=== PATIENT | male | born 1975 | race African-American/Black ===

== ENCOUNTER → 2016-08-14 | Outpatient (REF) | payer OTHER | LOC: M LABNEURO 12:37 | PROVIDERS: ATTEND Psychiatry & Neurology Neurology | DX: H49.00 Third [oculomotor] nerve palsy, unspecified eye (principal); H49.10 Fourth [trochlear] nerve palsy, unspecified eye ==

== ENCOUNTER → 2016-09-03 | Outpatient (CLI) | payer OTHER ==
--- NOTE | 2016-09-04 03:35 | REP ---
Clinical: Thymoma. Technique: Axial noncontrast images from the thoracic inlet to the upper abdomen with coronal and sagittal re-formations. Findings: The mediastinum is unremarkable for noncontrast evaluation and there is no significant residual thymic tissue or anterior mediastinal mass/abnormality. There is no evidence for axillary, hilar, or mediastinal adenopathy. Thyroid gland is unremarkable. The heart/pericardium, thoracic aorta and pulmonary vasculature appear normal. The bilateral lung rodriguez are symmetric and well-aerated. No acute consolidation, nodule or mass lesion is appreciated. No pleural effusion/reaction or pneumothorax. Tracheobronchial tree is patent. Surrounding musculoskeletal structures are normal. Impression: Normal noncontrast chest CT. No evidence for thymoma or mediastinal abnormality. No acute pulmonary parenchymal or pleural process. Signed by Art Bearden MD 09/04/2016 03:26 A
== END ==
LOC: M RAD 15:41
PROVIDERS: ATTEND Psychiatry & Neurology Neurology
DX: D15.0 Benign neoplasm of thymus (principal)

== ENCOUNTER 2016-10-03 21:42 | Emergency (ER) | payer OTHER ==
[~2016-10-03] VITALS: Ht 188 cm; Wt 93.0 kg
[2016-10-03] MEDS ORDERED: PYRIDOSTIGMINE 60 MG TAB PO SCH (22:15)
--- NOTE | 2016-10-03 22:26 | EDDOCDS ---
Physician Documentation [facility] Name: Sky Win Age: 41 yrs Sex: Male : 1975 Arrival Date: 10/03/2016 Time: 21:42 Bed 17 Private MD: Moses Rodríguez Disposition: 10/03/16 22:01 Discharged to Home/Self Care. Impression: Encounter for issue of repeat prescription. - Condition is Stable. - Prescriptions for Mestinon 60 mg Oral tablet - take 1 tablet by ORAL route 2 times per day; 10 tablet. - Medication Reconciliation, Local Pharmacy Hours form. - Follow up: Moses Rodríguez; When: Call to arrange an appointment; Reason: Recheck today's complaints, Continuance of care. - Problem is chronic. - Symptoms are unchanged. Historical: - Allergies: no known allergies; - Home Meds: 1. Mestinon 60 mg Oral tab BID 2. prednisone 20 mg Oral tab once daily 3. CellCept 500 mg Oral tab 3 tabs 2 times per day - PMHx: myasthenia gravis; - PSHx: Tonsillectomy; - Social history: Smoking status: Patient states was never smoker of tobacco. No barriers to communication noted, The patient speaks fluent Liberian. - Family history: Not pertinent. - : The pt / caregiver states he / she is not on anticoagulants. Home medication list is obtained from the patient. - Exposure Risk Screening:: None identified. Vital Signs: 10/03 21:42 BP 133 / 69; Pulse 85; Resp 16; Temp 96.3(T); Pulse Ox 99% on R/A; Weight 92.99 kg / lr2 205.01 lbs (R); Height 6 ft. 2 in. (187.96 cm) (R); 21:42 Body Mass Index 26.32 (92.99 kg, 187.96 cm) lr2 MDM: 22:08 Mestinon 60 mg PO once; dispense home with pt. ordered. ttb Administered Medications: 22:25 Drug: Mestinon 60 mg Route: PO; ttb Signatures: Asiya Coates RN RN oRnak Cotto DO DO cs11 Carolina Crane RN RN ttb Mary MedinaRN RN tm5 MTDD
--- NOTE | 2016-10-03 22:26 | EDDOCDS ---
Nurse's Notes [facility] Name: Sky Win Age: 41 yrs Sex: Male : 1975 Arrival Date: 10/03/2016 Time: 21:42 Bed 17 Private MD: Moses Rodríguez Diagnosis: Encounter for issue of repeat prescription Presentation: 10/03 21:48 Presenting complaint: Patient states: Daughter flushed meds down toilet--needs refill mcp on mestinon 60mg BID. Adult Sepsis Screening: The patient does not have new or worsening altered mentation. Patient's respiratory rate is less than 22. Systolic blood pressure is greater than 100. Patient has a qSOFA score of 0- Negative Sepsis Screen. Suicide/Homicide risk assessment- the patient denies having any suicidal and/or homicidal ideations and does not present with any other emotional, behavioral or mental health complaints. Status: The patient is an active duty financial services internship. Transition of care: patient was not received from another setting of care. 21:48 Acuity: JOYCELYN Level 5 [facility] 21:48 Method Of Arrival: Walkin/Carried/Asstd [facility] Triage Assessment: 21:52 General: Appears in no apparent distress, Behavior is cooperative. Pain: Denies pain. [facility] HIV screening NA for this visit Offered previously. Neurological: No deficits noted. Respiratory: Airway is patent Respiratory effort is even, unlabored. Derm: Skin is pink, warm & dry. Historical: - Allergies: no known allergies; - Home Meds: 1. Mestinon 60 mg Oral tab BID 2. prednisone 20 mg Oral tab once daily 3. CellCept 500 mg Oral tab 3 tabs 2 times per day - PMHx: myasthenia gravis; - PSHx: Tonsillectomy; - Social history: Smoking status: Patient states was never smoker of tobacco. No barriers to communication noted, The patient speaks fluent Montenegrin. - Family history: Not pertinent. - : The pt / caregiver states he / she is not on anticoagulants. Home medication list is obtained from the patient. - Exposure Risk Screening:: None identified. Screenin:58 Screening information is obtained from the patient. Fall risk: No risks identified. tm5 Assistance ADL's: requires no assistance with activities of daily living. Abuse/DV Screen: The patient / caregiver reports he/she is: not in a situation that causes fear, pain or injury. Nutritional screening: No deficits noted. Advance Directives: There is no active DNR order. home support is adequate. Assessment: 21:59 General: Appears in no apparent distress, Behavior is appropriate for age, cooperative. tm5 Pain: Denies pain. Respiratory: Airway is patent Respiratory effort is even, unlabored, Respiratory pattern is regular, symmetrical, Breath sounds are clear bilaterally. Derm: Skin is pink, warm & dry. 22:10 General: pt given DC instructions and is ready for DC. OK with MD to dispense dose for ttb pharmacy clerk. . 22:10 Neurological: Level of Consciousness is awake, alert, Reports weakness to right hand ttb trying to write.. 22:22 General: pt discharged.. ttb Vital Signs: 21:42 BP 133 / 69; Pulse 85; Resp 16; Temp 96.3(T); Pulse Ox 99% on R/A; Weight 92.99 kg (R); lr2 Height 6 ft. 2 in. (187.96 cm) (R); 21:42 Body Mass Index 26.32 (92.99 kg, 187.96 cm) lr2 Vitals: 21:42 Log In Time: October 03, 2016 at 21:42. lr2 ED Course: 21:44 Patient visited by Trini Magana. lr2 21:44 Patient moved to Waiting lr2 21:45 Moses Rodríguez is Private Physician. lr2 21:45 Patient moved to Pre RCE lr2 21:50 Triage Initiated mcp 21:51 Patient moved to [facility] 21:53 Patient visited by Asiya Coates RN. mcp 21:53 Ronak Nixon DO is Attending Physician. cs11 21:54 Patient visited by Ronak Nixon DO. cs11 21:58 Patient visited by Mary Medina RN. tm5 21:59 Awaiting ED physician evaluation. tm5 21:59 The patient / caregiver is instructed regarding the plan of care and ED course. tm5 21:59 No IV's were initiated during this patient's visit. No procedures done that require tm5 assistance. 22:00 Moses Rodríguez is Referral Physician. cs11 22:22 Patient has correct armband on for positive identification. ttb Administered Medications: 22:25 Drug: Mestinon 60 mg Route: PO; ttb Order Results: There are currently no results for this order. Outcome: 22:01 Discharge ordered by Provider. cs11 22:22 Discharge Assessment: Patient awake, alert and oriented x 3. No cognitive and/or ttb functional deficits noted. Patient verbalized understanding of disposition instructions. Patient awake and alert. patient administered narcotics - no. The following High Risk Discharge criteria are identified: None. Discharged to home ambulatory. Condition: good Condition: stable Condition: improved. Discharge instructions given to patient, Instructed on discharge instructions, follow up and referral plans. medication usage, Demonstrated understanding of instructions, medications, Pt was receptive of discharge instructions/ teaching. Prescriptions given X 1, 1 dose dispensed as well. No special radiology studies were completed. Property :Personal belongings accompany Pt. 22:25 Patient left the ED. ttb Signatures: Asiya Coates RN RN Jennifer Kidd Craig, DO DO cs11 Carolina Crane RN RN ttb Mary Medina RN RN donato5 Trini Magana2 AMADA
--- NOTE | 2016-10-05 23:27 | EDDOCDS ---
Physician Documentation [facility] Name: Sky Win Age: 41 yrs Sex: Male : 1975 Arrival Date: 10/03/2016 Time: 21:42 Bed 17 Private MD: Moses Rodríguez Disposition: 10/03/16 22:01 Discharged to Home/Self Care. Impression: Encounter for issue of repeat prescription. - Condition is Stable. - Prescriptions for Mestinon 60 mg Oral tablet - take 1 tablet by ORAL route 2 times per day; 10 tablet. - Medication Reconciliation, Local Pharmacy Hours form. - Follow up: Moses Rodríguez; When: Call to arrange an appointment; Reason: Recheck today's complaints, Continuance of care. - Problem is chronic. - Symptoms are unchanged. Historical: - Allergies: no known allergies; - Home Meds: 1. Mestinon 60 mg Oral tab BID 2. prednisone 20 mg Oral tab once daily 3. CellCept 500 mg Oral tab 3 tabs 2 times per day - PMHx: myasthenia gravis; - PSHx: Tonsillectomy; - Social history: Smoking status: Patient states was never smoker of tobacco. No barriers to communication noted, The patient speaks fluent Montenegrin. - Family history: Not pertinent. - : The pt / caregiver states he / she is not on anticoagulants. Home medication list is obtained from the patient. - Exposure Risk Screening:: None identified. Vital Signs: 10/03 21:42 BP 133 / 69; Pulse 85; Resp 16; Temp 96.3(T); Pulse Ox 99% on R/A; Weight 92.99 kg / lr2 205.01 lbs (R); Height 6 ft. 2 in. (187.96 cm) (R); 21:42 Body Mass Index 26.32 (92.99 kg, 187.96 cm) lr2 MDM: 22:08 Mestinon 60 mg PO once; dispense home with pt. ordered. ttb 10/04 09:34 T-Sheet-- Draft Copy was scanned into [employer] and attached to record. se Administered Medications: 10/03 22:25 Drug: Mestinon 60 mg Route: PO; ttb Signatures: Asiya Coates RN RN mcp Schiff, Craig, DO DO cs11 Carolina Crane RN RN Jennifer Abrams Tonya, RN RN tm5 The chart was reviewed and I authenticate all verbal orders and agree with the evaluation and treatment provided.Attachments: 10/04 09:34 T-Sheet-- Draft Copy wood Chart Complete MTDD
--- NOTE | 2016-10-05 23:27 | EDDOCDS ---
Physician Documentation [facility] Name: Sky Win Age: 41 yrs Sex: Male : 1975 Arrival Date: 10/03/2016 Time: 21:42 Bed 17 Private MD: Moses Rodríguez Disposition: 10/03/16 22:01 Discharged to Home/Self Care. Impression: Encounter for issue of repeat prescription. - Condition is Stable. - Prescriptions for Mestinon 60 mg Oral tablet - take 1 tablet by ORAL route 2 times per day; 10 tablet. - Medication Reconciliation, Local Pharmacy Hours form. - Follow up: Moses Rodríguez; When: Call to arrange an appointment; Reason: Recheck today's complaints, Continuance of care. - Problem is chronic. - Symptoms are unchanged. Historical: - Allergies: no known allergies; - Home Meds: 1. Mestinon 60 mg Oral tab BID 2. prednisone 20 mg Oral tab once daily 3. CellCept 500 mg Oral tab 3 tabs 2 times per day - PMHx: myasthenia gravis; - PSHx: Tonsillectomy; - Social history: Smoking status: Patient states was never smoker of tobacco. No barriers to communication noted, The patient speaks fluent Sammarinese. - Family history: Not pertinent. - : The pt / caregiver states he / she is not on anticoagulants. Home medication list is obtained from the patient. - Exposure Risk Screening:: None identified. Vital Signs: 10/03 21:42 BP 133 / 69; Pulse 85; Resp 16; Temp 96.3(T); Pulse Ox 99% on R/A; Weight 92.99 kg / lr2 205.01 lbs (R); Height 6 ft. 2 in. (187.96 cm) (R); 21:42 Body Mass Index 26.32 (92.99 kg, 187.96 cm) lr2 MDM: 22:08 Mestinon 60 mg PO once; dispense home with pt. ordered. ttb 10/04 09:34 T-Sheet-- Draft Copy was scanned into [employer] and attached to record. se Administered Medications: 10/03 22:25 Drug: Mestinon 60 mg Route: PO; ttb Signatures: Asiya Coates RN RN mcp Schiff, Craig, DO DO cs11 Carolina Crane RN RN Jennifer Abrams Tonya, RN RN tm5 The chart was reviewed and I authenticate all verbal orders and agree with the evaluation and treatment provided.Attachments: 10/04 09:34 T-Sheet-- Draft Copy wood Chart Complete MTDD
--- NOTE | 2016-10-05 23:27 | EDDOCDS ---
Nurse's Notes [facility] Name: Sky Win Age: 41 yrs Sex: Male : 1975 Arrival Date: 10/03/2016 Time: 21:42 Bed 17 Private MD: Moses Rodríguez Diagnosis: Encounter for issue of repeat prescription Presentation: 10/03 21:48 Presenting complaint: Patient states: Daughter flushed meds down toilet--needs refill mcp on mestinon 60mg BID. Adult Sepsis Screening: The patient does not have new or worsening altered mentation. Patient's respiratory rate is less than 22. Systolic blood pressure is greater than 100. Patient has a qSOFA score of 0- Negative Sepsis Screen. Suicide/Homicide risk assessment- the patient denies having any suicidal and/or homicidal ideations and does not present with any other emotional, behavioral or mental health complaints. 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 Transition of care: patient was not received from another setting of care. 21:48 Acuity: JOYCELYN Level 5 [facility] 21:48 Method Of Arrival: Walkin/Carried/Asstd [facility] Triage Assessment: 21:52 General: Appears in no apparent distress, Behavior is cooperative. Pain: Denies pain. [facility] HIV screening NA for this visit Offered previously. Neurological: No deficits noted. Respiratory: Airway is patent Respiratory effort is even, unlabored. Derm: Skin is pink, warm & dry. Historical: - Allergies: no known allergies; - Home Meds: 1. Mestinon 60 mg Oral tab BID 2. prednisone 20 mg Oral tab once daily 3. CellCept 500 mg Oral tab 3 tabs 2 times per day - PMHx: myasthenia gravis; - PSHx: Tonsillectomy; - Social history: Smoking status: Patient states was never smoker of tobacco. No barriers to communication noted, The patient speaks fluent Tajik. - Family history: Not pertinent. - : The pt / caregiver states he / she is not on anticoagulants. Home medication list is obtained from the patient. - Exposure Risk Screening:: None identified. Screenin:58 Screening information is obtained from the patient. Fall risk: No risks identified. tm5 Assistance ADL's: requires no assistance with activities of daily living. Abuse/DV Screen: The patient / caregiver reports he/she is: not in a situation that causes fear, pain or injury. Nutritional screening: No deficits noted. Advance Directives: There is no active DNR order. home support is adequate. Assessment: 21:59 General: Appears in no apparent distress, Behavior is appropriate for age, cooperative. tm5 Pain: Denies pain. Respiratory: Airway is patent Respiratory effort is even, unlabored, Respiratory pattern is regular, symmetrical, Breath sounds are clear bilaterally. Derm: Skin is pink, warm & dry. 22:10 General: pt given DC instructions and is ready for DC. OK with MD to dispense dose for ttb conciliator. . 22:10 Neurological: Level of Consciousness is awake, alert, Reports weakness to right hand ttb trying to write.. 22:22 General: pt discharged.. ttb Vital Signs: 21:42 BP 133 / 69; Pulse 85; Resp 16; Temp 96.3(T); Pulse Ox 99% on R/A; Weight 92.99 kg (R); lr2 Height 6 ft. 2 in. (187.96 cm) (R); 21:42 Body Mass Index 26.32 (92.99 kg, 187.96 cm) lr2 Vitals: 21:42 Log In Time: October 03, 2016 at 21:42. lr2 ED Course: 21:44 Patient visited by Trini Magana. lr2 21:44 Patient moved to Waiting lr2 21:45 Moses Rodríguez is Private Physician. lr2 21:45 Patient moved to Pre RCE lr2 21:50 Triage Initiated mcp 21:51 Patient moved to [facility] 21:53 Patient visited by Asiya Coates RN. mcp 21:53 Ronak Nixon DO is Attending Physician. cs11 21:54 Patient visited by Ronak Nixon DO. cs11 21:58 Patient visited by Mary Medina RN. tm5 21:59 Awaiting ED physician evaluation. tm5 21:59 The patient / caregiver is instructed regarding the plan of care and ED course. tm5 21:59 No IV's were initiated during this patient's visit. No procedures done that require tm5 assistance. 22:00 Moses Rodríguez is Referral Physician. cs11 22:22 Patient has correct armband on for positive identification. ttb 10/04 09:34 T-Sheet-- Draft Copy was scanned into [employer] and attached to record. se Administered Medications: 10/03 22:25 Drug: Mestinon 60 mg Route: PO; ttb Order Results: There are currently no results for this order. Outcome: 22: Discharge ordered by Provider. cs11 22:22 Discharge Assessment: Patient awake, alert and oriented x 3. No cognitive and/or ttb functional deficits noted. Patient verbalized understanding of disposition instructions. Patient awake and alert. patient administered narcotics - no. The following High Risk Discharge criteria are identified: None. Discharged to home ambulatory. Condition: good Condition: stable Condition: improved. Discharge instructions given to patient, Instructed on discharge instructions, follow up and referral plans. medication usage, Demonstrated understanding of instructions, medications, Pt was receptive of discharge instructions/ teaching. Prescriptions given X 1, 1 dose dispensed as well. No special radiology studies were completed. Property :Personal belongings accompany Pt. 22:25 Patient left the ED. ttb Signatures: Asiya Coates, RN RN Jennifer Kidd Craig, DO DO cs11 Carolina Crane RN RN ttb Jennifer Winters TonyaRN RN donato5 Trini Magana2 Chart Complete [facility]
== END 2016-10-03 22:25 | disposition home or self-care (01) ==
LOC: M ED 21:42
DX: Z76.0 Encounter for issue of repeat prescription (principal); G70.00 Myasthenia gravis without (acute) exacerbation; Z79.899 Other long term (current) drug therapy